=== PATIENT | male | born 1975 | race African-American/Black ===

== ENCOUNTER 2019-03-21 20:10 | Emergency (ER) | payer SELFPAY ==
[~2019-03-21] VITALS: Ht 188 cm; Wt 99.3 kg
[~2019-03-21 20:10] MED LIST: HYDR-3164 PO; NAPR-683 PO
[2019-03-21 20:20] VITALS: BP 138/77
[2019-03-21] MEDS ORDERED: CYCL10TA2 PO (20:49)
[2019-03-21] MEDS ORDERED: METH4TAB2 PO (20:49)
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
== END 2019-03-21 20:59 | disposition home or self-care (01) ==
LOC: ER 20:10
DX: M79.604 Pain in right leg (principal); G89.11 Acute pain due to trauma; V23.4XXA Motorcycle driver injured in collision with car, pick-up truck or van in traffic accident, initial encounter; Y93.89 Activity, other specified; Y92.488 Other paved roadways as the place of occurrence of the external cause; Y99.8 Other external cause status
CPT/HCPCS: 99283

== ENCOUNTER 2019-06-23 14:07 | Emergency (ER) | payer SELFPAY ==
[~2019-06-23] VITALS: Ht 188 cm; Wt 99.3 kg
[~2019-06-23 14:07] MED LIST changes: +CYCL10TA2 PO; +METH4TAB2 PO
[2019-06-23 14:30] VITALS: BP 166/80
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
== END 2019-06-23 15:51 | disposition home or self-care (01) ==
LOC: ER 14:07
DX: S90.31XA Contusion of right foot, initial encounter (principal); S80.01XA Contusion of right knee, initial encounter; M25.561 Pain in right knee; M25.512 Pain in left shoulder; V09.9XXA Pedestrian injured in unspecified transport accident, initial encounter; Y93.89 Activity, other specified; Y92.89 Other specified places as the place of occurrence of the external cause; Y99.8 Other external cause status
CPT/HCPCS: 73030; 73564; 73590; 73630; 99284